=== PATIENT | female | born 1995 | race African-American/Black ===

== ENCOUNTER 2022-11-18 15:30 | Inpatient (IN) | payer OTHER ==
[~2022-11-18] VITALS: Ht 160 cm; Wt 86.4 kg
[2022-11-18] MEDS ORDERED: METF-1211 PO (15:52)
[2022-11-18] MEDS ORDERED: VENL-66 PO (15:52)
[2022-11-18 17:16] LABS: BASOPHILS % (AUTO) 0.3 % (0.0-2.0); EOSINOPHILS % (AUTO) 1.1 % (1.0-6.0); HEMATOCRIT 39.2 % (36-46); LYMPHOCYTES # (AUTO) 2.6 K/uL (1.0-4.8); LYMPHOCYTES % (AUTO) 32.9 % (22.0-44.0); MEAN CORPUSCULAR HEMOGLOBIN 26.3 pg (26.0-34.0); MEAN CORPUSCULAR HGB CONC 33.1 G/dL (31.0-37.0); MEAN CORPUSCULAR VOLUME 79 fL (80-100); MONOCYTES # (AUTO) 0.4 K/uL (0.1-1.0); NEUTROPHILS # (AUTO) 4.8 K/uL (1.8-7.7); NEUTROPHILS % (AUTO) 60.7 % (40.0-70.0); PLATELET COUNT (AUTO) 286 K/uL (150-450); RED BLOOD CELL COUNT(AUTO) 4.94 MIL/uL (4.00-5.20); RED CELL DISTRIBUTION WIDTH 14.7 % (11.5-14.5)
[2022-11-18 17:32] LABS: ANION GAP 10 mmol/L (8-16); CARBON DIOXIDE 24 mmol/L (22-29); CHLORIDE 104 mmol/L (98-107); CREATININE 0.91 mg/dL (0.60-1.30); GLOMERULAR FILTR. RATE CALC > 60 mL/min (>60); GLUCOSE,RANDOM 95 mg/dL (70-110); SODIUM SERUM 138 mmol/L (136-145); UREA NITROGEN, BLOOD 12 mg/dL (7-18)
[2022-11-18 17:46] LABS: ALANINE AMINOTRANSFERASE 20 U/L (12-78); ALKALINE PHOSPHATASE 77 U/L (46-116); ASPARTATE AMINOTRANSFERASE 23 U/L (15-37); BILIRUBIN,TOTAL 0.3 mg/dL (0.1-1.0); TOTAL PROTEIN, SERUM 8.7 g/dL (6.4-8.2)
[2022-11-18] MEDS ORDERED: GuaiFENesin/D-METHORPHAN [SUGAR-FREE] 200-20MG/10 ML SYRUP UDCUP PO PRN (18:00)
[2022-11-18] MEDS ORDERED: MAGNESIUM HYDROXIDE SUSPENSION 30 ML UDCUP PO PRN (18:00)
[2022-11-18] MEDS ORDERED: LORazepam 2 MG TABLET PO PRN (18:00)
[2022-11-18] MEDS ORDERED: HydrOXYzine PAMOATE 50 MG CAPSULE PO PRN (18:00)
[2022-11-18] MEDS ORDERED: OLANZapine 5 MG RAPDIS TABLET PO PRN (18:00)
[2022-11-18] MEDS ORDERED: PROMETHAZINE HCL 25 MG TABLET PO PRN (18:00)
[2022-11-18] MEDS ORDERED: ACETAMINOPHEN 325 MG TABLET PO PRN (18:00)
[2022-11-18] MEDS ORDERED: MAG HYDROX/AL HYDROX/SIMETH ES 30 ML SUSPENSION UDCUP PO PRN (18:00)
[2022-11-18] MEDS ORDERED: LOPERAMIDE HCL 2 MG CAPSULE PO PRN (18:00)
[2022-11-18] MEDS ORDERED: ZOLPIDEM TARTRATE 10 MG TABLET PO PRN (18:00)
[2022-11-18] MEDS ORDERED: TUBERCULIN, PURIFIED PROTEIN DERIVATIVE 5 TU/0.1 ML SYRINGE ID ONE (18:00)
[2022-11-18 18:44] LABS: COVID AG,FIA SOURCE NASAL SWAB
[2022-11-18] MEDS ORDERED: LORazepam 2 MG TABLET PO ONE (19:00)
[2022-11-18] MEDS ORDERED: OLANZapine 5 MG TABLET PO ONE (19:00)
[2022-11-18] MEDS ORDERED: DiphenhydrAMINE HCL 25 MG CAPSULE PO ONE (19:00)
[2022-11-18 19:01] LABS: AMPHET/METH SCREEN,URINE NEGATIVE (NEGATIVE); BARBITURATE SCREEN, URINE NEGATIVE (NEGATIVE); BENZODIAZEPINES SCREEN,URINE NEGATIVE (NEGATIVE); CANNABINOID SCREEN,URINE POSITIVE (NEGATIVE); COCAINE SCREEN,URINE NEGATIVE (NEGATIVE); METHADONE SCREEN, URINE NEGATIVE (NEGATIVE); OPIATE SCREEN,URINE NEGATIVE (NEGATIVE); PHENCYCLIDINE SCREEN,URINE NEGATIVE (NEGATIVE)
[2022-11-18] MEDS: THIAMINE 100 MG TABLET PO SCH (21:00)
[2022-11-18] MEDS: OLANZapine 5 MG RAPDIS TABLET PO SCH (21:00)
[2022-11-18] MEDS: MELATONIN 5 MG TABLET PO SCH (21:00)
[2022-11-18 22:45] VITALS: BP 101/53
[2022-11-19 08:05] LABS: CHOL/HDL RATIO 3.7 (3.9-5.7); FREE T4 (FREE THYROXINE) 1.04 ng/dL (0.76-1.46); THYROID STIMULATING HORMONE 1.45 uIU/mL (0.36-3.74)
[2022-11-19] MEDS: NALTREXONE HCL 50 MG TABLET PO SCH (08:48)
[2022-11-19] MEDS: FLUoxetine HCL 20 MG CAPSULE PO SCH (08:49)
[2022-11-19] MEDS: OMEGA-3/DHA/EPA/FISH OIL 1,000 MG CAPSULE PO SCH (08:49)
[2022-11-19] MEDS: THIAMINE 100 MG TABLET PO SCH ×2 (08:50→16:19)
[2022-11-19] MEDS: FOLIC ACID 1 MG TABLET PO SCH (08:50)
[2022-11-19] MEDS: MULTIVITAMINS WITH MINERALS, THERAPEUTIC TABLET PO SCH (08:52)
[2022-11-19 09:20] VITALS: BP 109/70
[2022-11-19 20:47] VITALS: BP 106/69
[2022-11-19] MEDS: OLANZapine 5 MG RAPDIS TABLET PO SCH (21:10)
[2022-11-19] MEDS: MELATONIN 5 MG TABLET PO SCH (21:11)
[2022-11-20 06:16] LABS: GLUCOMETER DEV NAME(LOC) BV2S.; GLUCOSE,POINT OF CARE 84 MG/DL (70-110)
[2022-11-20 08:54] VITALS: BP 116/62
[2022-11-20] MEDS: MULTIVITAMINS WITH MINERALS, THERAPEUTIC TABLET PO SCH (09:37)
[2022-11-20] MEDS: THIAMINE 100 MG TABLET PO SCH ×2 (09:37→16:33)
[2022-11-20] MEDS: FLUoxetine HCL 20 MG CAPSULE PO SCH (09:37)
[2022-11-20] MEDS: OMEGA-3/DHA/EPA/FISH OIL 1,000 MG CAPSULE PO SCH (09:37)
[2022-11-20] MEDS: NALTREXONE HCL 50 MG TABLET PO SCH (09:38)
[2022-11-20] MEDS: FOLIC ACID 1 MG TABLET PO SCH (09:38)
[2022-11-20 17:27] LABS: GLUCOMETER DEV NAME(LOC) BV2S.; GLUCOSE,POINT OF CARE 130 MG/DL (70-110)
[2022-11-20] MEDS: OLANZapine 5 MG RAPDIS TABLET PO SCH (21:11)
[2022-11-20] MEDS: MELATONIN 5 MG TABLET PO SCH (21:12)
[2022-11-20 22:56] VITALS: BP 117/62
[2022-11-21 06:36] LABS: GLUCOMETER DEV NAME(LOC) BV2S.; GLUCOSE,POINT OF CARE 93 MG/DL (70-110)
[2022-11-21] MEDS: THIAMINE 100 MG TABLET PO SCH ×2 (08:41→17:29)
[2022-11-21] MEDS: MULTIVITAMINS WITH MINERALS, THERAPEUTIC TABLET PO SCH (08:41)
[2022-11-21] MEDS: NALTREXONE HCL 50 MG TABLET PO SCH (08:41)
[2022-11-21] MEDS: FOLIC ACID 1 MG TABLET PO SCH (08:41)
[2022-11-21 08:53] VITALS: BP 117/70
[2022-11-21] MEDS ORDERED: VENLAFAXINE HCL 150 MG ER CAPSULE PO SCH (09:00)
[2022-11-21] MEDS ORDERED: DULoxetine HCL 20 MG CAPSULE PO SCH (09:00)
[2022-11-21] MEDS: OMEGA-3/DHA/EPA/FISH OIL 1,000 MG CAPSULE PO SCH (11:02)
[2022-11-21 18:41] LABS: GLUCOMETER DEV NAME(LOC) BV2S.; GLUCOSE,POINT OF CARE 141 MG/DL (70-110)
[2022-11-21] MEDS: OLANZapine 5 MG RAPDIS TABLET PO SCH (20:02)
[2022-11-21] MEDS: MELATONIN 5 MG TABLET PO SCH (20:03)
[2022-11-21] MEDS ORDERED: OLANZapine 10 MG RAPDIS TABLET PO SCH (21:00)
[2022-11-21] MEDS: DOXEPIN HCL 25 MG CAPSULE PO SCH ×2 (21:27→22:30)
[2022-11-21 21:40] VITALS: BP 126/85
[2022-11-22 06:41] LABS: GLUCOMETER DEV NAME(LOC) BV2S.; GLUCOSE,POINT OF CARE 90 MG/DL (70-110)
[2022-11-22] MEDS: THIAMINE 100 MG TABLET PO SCH (08:43)
[2022-11-22] MEDS: NALTREXONE HCL 50 MG TABLET PO SCH (08:43)
[2022-11-22] MEDS: MULTIVITAMINS WITH MINERALS, THERAPEUTIC TABLET PO SCH (08:44)
[2022-11-22] MEDS: FOLIC ACID 1 MG TABLET PO SCH (08:44)
[2022-11-22] MEDS: OMEGA-3/DHA/EPA/FISH OIL 1,000 MG CAPSULE PO SCH (08:44)
[2022-11-22] MEDS ORDERED: DULoxetine HCL 20 MG CAPSULE PO SCH (09:00)
[2022-11-22] MEDS ORDERED: DOXE25CA66 PO ×2 (09:39→13:12)
[2022-11-22] MEDS ORDERED: OMEG-135 PO ×2 (09:39→13:12)
[2022-11-22] MEDS ORDERED: DULO20CA71 PO ×2 (09:39→13:12)
[2022-11-22] MEDS ORDERED: NALT50TA PO (09:39)
[2022-11-22] MEDS ORDERED: OLAN10TA26 PO ×2 (09:39→13:12)
[2022-11-22] MEDS ORDERED: MELA5TAB40 PO (09:39)
[2022-11-22 09:41] VITALS: BP 130/69
== END 2022-11-22 16:00 | disposition home or self-care (01) | DRG 885 ==
LOC: EMS 15:32 → B2S 21:02
PROVIDERS: ADMIT Psychiatry & Neurology Psychiatry; ATTEND Psychiatry & Neurology Psychiatry
DX: F25.0 Schizoaffective disorder, bipolar type (principal); Z20.822 Contact with and (suspected) exposure to COVID-19; D64.9 Anemia, unspecified; R73.03 Prediabetes; Z55.9 Problems related to education and literacy, unspecified; Z59.9 Problem related to housing and economic circumstances, unspecified; Z63.9 Problem related to primary support group, unspecified; Z65.3 Problems related to other legal circumstances; Z91.14 Patient's other noncompliance with medication regimen
CPT/HCPCS: 80053; 80061; 80307; 82962; 83036; 84439; 84443; 84703; 85025; 86592; 99285; G0480; Q9967